=== PATIENT | male | born 1995 | race Caucasian/White ===

== ENCOUNTER 2017-01-29 03:18 | Emergency (ER) | payer SELFPAY ==
[2017-01-29 03:26] VITALS: RESP 16; TEMP 98.2
--- NOTE | 2017-01-29 03:26 | EDPHY ---
H & P Stated Complaint: R leg injury HPI/ROS: HPI CHIEF COMPLAINT: Alcohol intoxication, right leg injury HISTORY OF PRESENT ILLNESS: This patient 21-year-old male, otherwise healthy denies any significant medical history presents emergency room by private vehicle with his 2 friends. They were drinking alcohol this evening. It is reported by his friends that he had a drinks. Presents emergency room intoxicated with alcohol slurring his speech and smells of alcohol. He is complaining of right distal tib-fib pain. Patient states he was rough-housing with his friends and somehow injured his right leg. Unclear exactly the mechanism. He is not able to bear weight. Past Medical History: Denies significant medical history Past Surgical History: Denies significant surgical history Social History: Denies daily tobacco drugs. Was drinking alcohol this evening. Update drinks. Family History: Noncontributory. ROS REVIEW OF SYSTEMS: A comprehensive 10 point review of systems is otherwise negative aside from elements mentioned in the history of present illness. Exam Constitutional smells of alcohol, intoxicated, triage nursing summary reviewed , vital signs reviewed, awake/alert. Eyes normal conjunctivae and sclera, EOMI, PERRLA. HENT normal inspection, atraumatic, moist mucus membranes, no epistaxis, neck supple/ no meningismus, no raccoon eyes. Respiratory clear to auscultation bilaterally, normal breath sounds, no respiratory distress, no wheezing. Cardiovascular rate normal, regular rhythm, no murmur, no edema, distal pulses normal. Gastrointestinal soft, non-tender, no rebound, no guarding, normal bowel sounds, no distension, no pulsatile mass. Genitourinary no CVA tenderness. Musculoskeletal right leg: Neurovascularly intact good distal pulse, warm extremity, good cap refill, tender palpation over the distal tib-fib. With mild swelling, no midline vertebral tenderness, full range of motion, no calf swelling, no tenderness of extremities, no meningismus, good pulses, neurovascularly intact. Skin pink, warm, & dry, no rash, skin atraumatic. Compartments are soft. Neurologic awake, alert and oriented x 3, AAOx3, moves all 4 extremities equally, motor intact, sensory intact, CN II-XII intact, normal cerebellar, normal vision, normal speech. Psychiatric normal mood/affect. Heme/Lymph/Immune no lymphadenopathy. Differential Diagnosis: Includes but is not limited to in a particular order acute alcohol intoxication, alcohol abuse, right tib-fib fracture, distal fibula fracture, spiral tibial fracture, soft tissue injury, leg contusion, leg sprain, ankle contusion, ankle sprain. Medical Decision Making: Plan for this patient x-ray right tib-fib. Re-evaluation: 0343AM; patient's x-ray of the right leg has been reviewed. He has a spiral distal fibular fracture. The patient is highly intoxicated with alcohol here. I am unable to give him any narcotics for this fracture this time due to his severe alcohol intoxication. Be given Motrin and Tylenol this time. He will additionally be splinted in a posterior short-leg with stirrup. His compartments are soft. He is neurovascularly intact. He will need to be followed up with Orthopedics outpatient. He will be nonweightbearing. Crutches. A prescription will be provided for Hugoton and ibuprofen. He understands elevate his leg. Ice. Return if any worsening symptoms questions or concerns includes worsening pain. 0400: X-rays reviewed both tib-fib and ankle. He has a spiral comminuted right fibula fracture. Patient be splinted appropriately. Ortho be consult. 0413AM: Dr. Ngo moved in with Orthopedics at bedside evaluating this patient' s leg fracture with fluoro. This patient was splinted by Dr. Hunter Brooks. Patient is ambulatory with crutches. Nonweightbearing. Understands follow-up Dr. Brooks outpatient. Source: Patient - Personal History Current Tetanus/Diphtheria Vaccine: Yes - Medical/Surgical History Hx Asthma: No Hx Chronic Respiratory Disease: No Hx Diabetes: No Hx Cardiac Disease: No Hx Renal Disease: No Hx Cirrhosis: No Hx Alcoholism: No Hx HIV/AIDS: No Hx Splenectomy or Spleen Trauma: No Other PMH: PMHx: denies. PSHx: denies - Social History Smoking Status: Current some day smoker Constitutional: Initial Vital Signs Temperature (C) 36.8 C 01/29/17 03:22 Heart Rate 109 H 01/29/17 03:22 Respiratory Rate 16 01/29/17 03:22 Blood Pressure 149/86 H 01/29/17 03:22 O2 Sat (%) 94 01/29/17 03:22 O2 Delivery Mode Room Air Allergies/Adverse Reactions: No Known Allergies Allergy (Unverified 01/29/17 03:22) Home Medications: Medication Instructions Recorded Hydrocodone/APAP 5/325 [Hugoton 1 - 2 tab PO Q4H PRN #10 tab 01/29/17 5/325] Ibuprofen [Motrin (*)] 800 mg PO Q6-8PRN #10 tab 01/29/17 Medical Decision Making - Data Points Medications Given: Discontinued Medications Acetaminophen (Tylenol) 1,000 mg PO EDNOW ONE Stop: 01/29/17 03:42 Last Admin: 01/29/17 03:43 Dose: 1,000 mg Ibuprofen (Motrin) 600 mg PO EDNOW ONE Stop: 01/29/17 03:42 Last Admin: 01/29/17 03:43 Dose: 600 mg Departure - Departure Disposition: Home, Routine, Self-Care Clinical Impression: Leg fracture, right Qualifiers: Encounter type: initial encounter Fracture type: closed Qualified Code(s): S82.91XA - Unspecified fracture of right lower leg, initial encounter for closed fracture Condition: Good Instructions: Leg Fracture (ED) Additional Instructions: 1. Keep your leg elevated. 2. Take Tylenol Motrin for pain control. 3. Follow up with Orthopedics. Please call their for an appointment. 4. Do not bear weight. Referrals: NONE *PRIMARY CARE P,. [Primary Care Provider] - As per Instructions Brayden Brooks MD [Medical Doctor] - As per Instructions Stand Alone Forms: Work Excuse Prescriptions: Hydrocodone/APAP 5/325 [Hugoton 5/325] 1 - 2 tab PO Q4H PRN #10 tab PRN Reason: Pain, Moderate Ibuprofen [Motrin (*)] 800 mg PO Q6-8PRN #10 tab
[2017-01-29] MEDS ORDERED: IBUPROFEN 600 MG TAB PO ONE ×2 (03:41→03:42)
[2017-01-29] MEDS ORDERED: ACETAMINOPHEN 500 MG TAB PO ONE (03:41)
[2017-01-29] MEDS ORDERED: ACETAMINOPHEN 500 MG TAB ONE (03:42)
[2017-01-29 05:22] VITALS: BP 141/66; PULSE 90; O2SAT 95
--- NOTE | 2017-01-29 05:32 | PDCONSULT ---
Screen Cleaner Note: Orthopaedic Consult Note DOS: 01/29/2017 CC: Right ankle fracture HPI: Consult requested by ED (Dr. 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 He says his foot was planted and he may have twisted it. No open bleeding. No prior injuries to the foot/ankle. Accompanied by several friends. Currently working with a realtor over the summer. Loves snowboarding and unfortuantely has a new snowboard coming tomorrow. PMHx: No chronic medical conditions Meds: none PSHx: thumb surgery as a child All: NKDA SocHx: [employer] student studying economics. Likes the [employer] team. 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 ROS: otherwise healthy across multiple systems, though acknowledges he is inebriate PE: alert and oriented to place, date, person RLE: minimal edema. No open wounds. TTP fibula and mildly painful with ankle manipulation. SILT S/S/SP/DP/T. 2+ DP Imaging: radiographs visually reviewed, showing a Baum C ankle fracture with fluoroscopic confirmation of widening with stress. 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 - NWB RLE - Short leg splint applied - Elevation of RLE until surgery - Ice for comfort - Provided medical office scheduler card for contact re: surgical plan - soft tissues appear nonedematous right now - will probably be good for surgery this week, but we discussed importance of elevation and soft tissue optimization for surgery. We' ll inspect the tissues again on day of surgery to ensure suitability - We had a long discussion about the post-surgical recovery period. He will not be able to be cleared for full boarding until August, which is distressing to him, naturally.
== END 2017-01-29 05:22 | disposition home or self-care (01) ==
DX: S82.431A Displaced oblique fracture of shaft of right fibula, initial encounter for closed fracture (principal); F17.200 Nicotine dependence, unspecified, uncomplicated; X58.XXXA Exposure to other specified factors, initial encounter; Y93.83 Activity, rough housing and horseplay